=== PATIENT | male | born 1955 | race Caucasian/White ===

== ENCOUNTER 2018-11-14 10:44 | Inpatient (IN) | payer OTHER ==
[2018-11-14] MEDS: THIAMINE 100 MG TAB PO (11:02)
[2018-11-14] MEDS: LORAZEPAM 2 MG INJ IV ×3 (11:02→14:03)
[2018-11-14] MEDS: SOD CHLORIDE 0.9% 1,000 ML IV ×2 (11:02→19:34)
[2018-11-14 11:16] LABS: ADD MAN DIFF? NO
[2018-11-14 11:23] LABS: ABNORMAL IP MESSAGE 1; BASOPHILS % 0.3 % (0.0-2.0); EOSINOPHILS # 0.1 10^3/ul (0.0-0.5); EOSINOPHILS % 0.9 % (0.0-7.0); HEMATOCRIT 47.5 % (42.0-52.0); HEMOGLOBIN 16.6 g/dl (14.0-18.0); LYMPHOCYTES # 1.1 10^3/ul (0.8-2.9); LYMPHOCYTES % 11.3 % (15.0-51.0); MEAN CORPUSCULAR HEMOGLOBIN 35.7 pg (29.0-33.0); MEAN CORPUSCULAR HGB CONC 34.9 g/dl (32.0-37.0); MEAN CORPUSCULAR VOLUME 102.2 fl (82.0-101.0); MONOCYTE # 0.8 10^3/ul (0.3-0.9); MONOCYTES % 8.8 % (0.0-11.0); NEUTROPHIL # 7.3 10^3/ul (1.6-7.5); NEUTROPHILS % 78.3 % (39.0-77.0); PLATELET COUNT 42 10^3/UL (140-415); POSITIVE DIFF @See below; RED BLOOD COUNT 4.65 10^6/ul (4.70-6.10); RED CELL DISTRIBUTION WIDTH 13.2 % (11.5-14.5)
[2018-11-14 11:23] LABS: WHITE BLOOD COUNT 9.4 10^3/ul (4.8-10.8)
[2018-11-14 11:25] LABS: PATH REVIEW? YES
[2018-11-14 11:40] LABS: ALANINE AMINOTRANSFERASE 107 IU/L (13-69); ALBUMIN 4.6 g/dl (3.3-4.9); ALBUMIN/GLOBULIN RATIO 1.27; ALKALINE PHOSPHATASE 84 IU/L (42-121); ANION GAP 18 (5-13); ASPARTATE AMINO TRANSFERASE 236 IU/L (15-46); BILIRUBIN,INDIRECT 1.6 mg/dl (0-1.1); BILIRUBIN,TOTAL 1.6 mg/dl (0.2-1.3); BLOOD UREA NITROGEN 33 mg/dl (7-20); CALCIUM 10.3 mg/dl (8.4-10.2); CARBON DIOXIDE 24 mmol/L (21-31); CHLORIDE 98 mmol/L (97-110); Estimated GFR 38 mL/min (>60); GLUCOSE 116 mg/dl (70-220); POTASSIUM 4.2 mmol/L (3.5-5.1); SODIUM 140 mmol/L (135-144); TOTAL PROTEIN 8.2 g/dl (6.1-8.1)
[2018-11-14 11:52] LABS: INR 0.95; PROTIME 12.8 Sec (11.9-14.9)
[2018-11-14 11:53] LABS: PARTIAL THROMBOPLASTIN TIME 23.1 Sec (23.0-35.0)
[2018-11-14] MEDS: MULTIVITAMINS 10 ML, THIAMINE 100 MG, FOLIC ACID 1 MG, MAGNESIUM SULFATE 2 GM in SOD CH... IV ×2 (12:09→16:31)
[2018-11-14 12:28] LABS: ETHANOL < 10.0 mg/dl (0-0)
[2018-11-14 12:42] LABS: ANISOCYTOSIS 1+ (0-0); BAND NEUTROPHILS #M 0.2 10^3/ul (0.0-0.6); BAND NEUTROPHILS % (M) 3 % (0-4); EOSINOPHILS % (M) 1 % (0-7); HYPOCHROMASIA 1+ (0-0); LYMPHOCYTES #M 1.7 10^3/ul (0.8-2.9); LYMPHOCYTES % (M) 19 % (15-51); MONOCYTE #M 0.5 10^3/ul (0.3-0.9); MONOCYTES % (M) 6 % (0-11); PLATELET ESTIMATE SIG DECREASED; PLATELET MORPHOLOGY COMMENT @See below; POIKILOCYTOSIS 1+ (0-0); POLYCHROMASIA 1+ (0-0); REACTIVE LYMPHOCYTES% (M) 1 % (0-0); SEG NEUT #M 6.6 10^3/ul (1.6-7.5); SEGMENTED NEUTROPHILS (M) % 70 % (39-77); SMUDGE%M 11 % (0-0); TARGET CELLS 1+ (0-0)
[2018-11-14] MEDS ORDERED: ACETAMINOPHEN 325 MG TAB PO (14:00)
[2018-11-14] MEDS ORDERED: ONDANSETRON 4 MG INJ IV ×2 (14:00→15:00)
[2018-11-14] MEDS: HALOPERIDOL 5 MG INJ IM (14:33)
[2018-11-14] MEDS: DIAZEPAM 5 MG/ML SYG IV ×7 (14:54→19:19)
[2018-11-14] MEDS ORDERED: ALBUTEROL/IPRATROPIUM (NEB) 3 ML AMP HHN (15:00)
[2018-11-14] MEDS ORDERED: NACL 0.9% 3 ML SYG IV (15:00)
[2018-11-14 15:57] LABS: FOLATE 13.2 ng/ml (2.8-20.0)
[2018-11-14] MEDS ORDERED: CHLORDIAZEPOXIDE 25 MG CAP PO (17:00)
[2018-11-14] MEDS: CHLORDIAZEPOXIDE 25 MG CAP PO ×2 (17:00→21:00)
[2018-11-15] MEDS: DIAZEPAM 5 MG/ML SYG IV ×2 (00:12→14:35)
[2018-11-15] MEDS: CHLORDIAZEPOXIDE 25 MG CAP PO ×4 (00:12→20:12)
[2018-11-15] MEDS ORDERED: DIAZEPAM 5 MG/ML SYG IV ×2 (00:30→17:30)
[2018-11-15] MEDS: SOD CHLORIDE 0.9% 1,000 ML IV ×2 (06:00→15:32)
[2018-11-15] MEDS: PANTOPRAZOLE (EC) 40 MG TAB PO (06:27)
[2018-11-15] MEDS: LORAZEPAM 2 MG INJ IV ×6 (07:44→21:30)
[2018-11-15 08:46] LABS: ADD MAN DIFF? NO
[2018-11-15 08:56] LABS: ABNORMAL IP MESSAGE 1; BASOPHILS % 0.3 % (0.0-2.0); EOSINOPHILS # 0.2 10^3/ul (0.0-0.5); HEMATOCRIT 41.5 % (42.0-52.0); HEMOGLOBIN 14.2 g/dl (14.0-18.0); LYMPHOCYTES % 12.7 % (15.0-51.0); MEAN CORPUSCULAR HEMOGLOBIN 35.5 pg (29.0-33.0); MEAN CORPUSCULAR HGB CONC 34.2 g/dl (32.0-37.0); MEAN CORPUSCULAR VOLUME 103.8 fl (82.0-101.0); MONOCYTE # 0.7 10^3/ul (0.3-0.9); MONOCYTES % 9.1 % (0.0-11.0); NEUTROPHILS % 75.4 % (39.0-77.0); PLATELET COUNT 33 10^3/UL (140-415); POSITIVE DIFF @See below; RED CELL DISTRIBUTION WIDTH 13.2 % (11.5-14.5)
[2018-11-15 08:56] LABS: WHITE BLOOD COUNT 7.9 10^3/ul (4.8-10.8)
[2018-11-15 09:16] LABS: ALANINE AMINOTRANSFERASE 93 IU/L (13-69); ALBUMIN 3.6 g/dl (3.3-4.9); ALBUMIN/GLOBULIN RATIO 1.28; ALKALINE PHOSPHATASE 60 IU/L (42-121); ANION GAP 15 (5-13); ASPARTATE AMINO TRANSFERASE 268 IU/L (15-46); BILIRUBIN,INDIRECT 1.4 mg/dl (0-1.1); BILIRUBIN,TOTAL 1.4 mg/dl (0.2-1.3); BLOOD UREA NITROGEN 20 mg/dl (7-20); CALCIUM 8.8 mg/dl (8.4-10.2); CARBON DIOXIDE 21 mmol/L (21-31); CHLORIDE 103 mmol/L (97-110); CREATININE 0.95 mg/dl (0.61-1.24); Estimated GFR > 60 mL/min (>60); GLUCOSE 66 mg/dl (70-220); MAGNESIUM 1.6 mg/dl (1.7-2.5); PHOSPHORUS 1.4 mg/dl (2.5-4.9); POTASSIUM 3.3 mmol/L (3.5-5.1); SODIUM 139 mmol/L (135-144); TOTAL PROTEIN 6.4 g/dl (6.1-8.1)
[2018-11-15 09:20] LABS: HEMOGLOBIN A1C 4.8 % (0-5.9)
[2018-11-15 09:39] LABS: THYROID STIMULATING HORMONE 0.973 MIU/L (0.465-4.680)
[2018-11-15] MEDS ORDERED: THIAMINE 200 MG INJ IV (10:00)
[2018-11-15] MEDS: THIAMINE 500 MG in SOD CHLORIDE 0.9% 250 ML IV ×2 (11:00→20:11)
[2018-11-15] MEDS: MAGNESIUM SULFATE 3 GM in DEXTROSE 5% 100 ML IVPB (14:37)
[2018-11-15] MEDS: POTASSIUM PHOSPHATE 30 MM in SOD CHLORIDE 0.9% 250 ML IVPB (17:12)
[2018-11-16] MEDS: LORAZEPAM 2 MG INJ IV ×3 (01:09→03:35)
[2018-11-16] MEDS: THIAMINE 500 MG in SOD CHLORIDE 0.9% 250 ML IV ×3 (03:35→18:25)
[2018-11-16] MEDS: SOD CHLORIDE 0.9% 1,000 ML IV ×2 (03:42→18:25)
[2018-11-16] MEDS: ACETAMINOPHEN 325 MG TAB PO ×2 (05:58→20:08)
[2018-11-16] MEDS: PANTOPRAZOLE (EC) 40 MG TAB PO (05:59)
[2018-11-16] MEDS: CHLORDIAZEPOXIDE 25 MG CAP PO ×2 (08:54→20:08)
[2018-11-16 10:33] LABS: ADD MAN DIFF? NO
[2018-11-16 10:35] LABS: WHITE BLOOD COUNT 9.3 10^3/ul (4.8-10.8)
[2018-11-16 10:35] LABS: ABNORMAL IP MESSAGE 1; BASOPHILS % 0.2 % (0.0-2.0); EOSINOPHILS # 0.1 10^3/ul (0.0-0.5); EOSINOPHILS % 1.4 % (0.0-7.0); HEMOGLOBIN 14.2 g/dl (14.0-18.0); LYMPHOCYTES # 1.1 10^3/ul (0.8-2.9); LYMPHOCYTES % 12.2 % (15.0-51.0); MEAN CORPUSCULAR HEMOGLOBIN 35.9 pg (29.0-33.0); MEAN CORPUSCULAR HGB CONC 34.6 g/dl (32.0-37.0); MEAN CORPUSCULAR VOLUME 103.5 fl (82.0-101.0); MONOCYTE # 0.9 10^3/ul (0.3-0.9); MONOCYTES % 9.5 % (0.0-11.0); NEUTROPHIL # 7.1 10^3/ul (1.6-7.5); NEUTROPHILS % 76.2 % (39.0-77.0); PLATELET COUNT 36 10^3/UL (140-415); POSITIVE DIFF @See below; RED BLOOD COUNT 3.96 10^6/ul (4.70-6.10)
[2018-11-16 11:01] LABS: ANION GAP 10 (5-13); BLOOD UREA NITROGEN 12 mg/dl (7-20); CALCIUM 8.4 mg/dl (8.4-10.2); CARBON DIOXIDE 24 mmol/L (21-31); CHLORIDE 104 mmol/L (97-110); CREATININE 0.71 mg/dl (0.61-1.24); Estimated GFR > 60 mL/min (>60); GLUCOSE 103 mg/dl (70-220); MAGNESIUM 1.4 mg/dl (1.7-2.5); PHOSPHORUS 3.4 mg/dl (2.5-4.9); POTASSIUM 3.6 mmol/L (3.5-5.1); SODIUM 138 mmol/L (135-144)
[2018-11-17] MEDS: THIAMINE 500 MG in SOD CHLORIDE 0.9% 250 ML IV (02:05)
[2018-11-17] MEDS: HYDROCODONE/APAP (5/325) TAB PO ×4 (03:52→21:11)
[2018-11-17] MEDS: SOD CHLORIDE 0.9% 1,000 ML IV ×3 (04:42→21:37)
[2018-11-17] MEDS: PANTOPRAZOLE (EC) 40 MG TAB PO (05:30)
[2018-11-17 06:09] LABS: ADD MAN DIFF? NO
[2018-11-17 06:22] LABS: WHITE BLOOD COUNT 7.4 10^3/ul (4.8-10.8)
[2018-11-17 06:22] LABS: ABNORMAL IP MESSAGE 1; BASOPHILS % 0.1 % (0.0-2.0); EOSINOPHILS # 0.2 10^3/ul (0.0-0.5); EOSINOPHILS % 3.2 % (0.0-7.0); HEMATOCRIT 37.7 % (42.0-52.0); HEMOGLOBIN 13.1 g/dl (14.0-18.0); LYMPHOCYTES # 1.1 10^3/ul (0.8-2.9); LYMPHOCYTES % 14.6 % (15.0-51.0); MEAN CORPUSCULAR HEMOGLOBIN 35.7 pg (29.0-33.0); MEAN CORPUSCULAR HGB CONC 34.7 g/dl (32.0-37.0); MEAN CORPUSCULAR VOLUME 102.7 fl (82.0-101.0); MONOCYTE # 0.9 10^3/ul (0.3-0.9); MONOCYTES % 12.7 % (0.0-11.0); NEUTROPHIL # 5.1 10^3/ul (1.6-7.5); POSITIVE DIFF @See below; RED BLOOD COUNT 3.67 10^6/ul (4.70-6.10); RED CELL DISTRIBUTION WIDTH 12.8 % (11.5-14.5)
[2018-11-17 06:34] LABS: PLATELET COUNT 46 10^3/UL (140-415)
[2018-11-17 06:47] LABS: ALANINE AMINOTRANSFERASE 85 IU/L (13-69); ALBUMIN/GLOBULIN RATIO 1.03; ALKALINE PHOSPHATASE 54 IU/L (42-121); ANION GAP 5 (5-13); ASPARTATE AMINO TRANSFERASE 141 IU/L (15-46); BILIRUBIN,INDIRECT 1.1 mg/dl (0-1.1); BILIRUBIN,TOTAL 1.1 mg/dl (0.2-1.3); BLOOD UREA NITROGEN 12 mg/dl (7-20); CALCIUM 8.3 mg/dl (8.4-10.2); CARBON DIOXIDE 24 mmol/L (21-31); CHLORIDE 107 mmol/L (97-110); CREATININE 0.75 mg/dl (0.61-1.24); Estimated GFR > 60 mL/min (>60); GLUCOSE 111 mg/dl (70-220); POTASSIUM 3.2 mmol/L (3.5-5.1); SODIUM 136 mmol/L (135-144); TOTAL PROTEIN 5.9 g/dl (6.1-8.1)
[2018-11-17 07:03] LABS: MAGNESIUM 1.3 mg/dl (1.7-2.5)
[2018-11-17 07:03] LABS: PHOSPHORUS 2.8 mg/dl (2.5-4.9)
[2018-11-17] MEDS: CHLORDIAZEPOXIDE 25 MG CAP PO ×2 (08:35→21:12)
[2018-11-17] MEDS: ACETAMINOPHEN 325 MG TAB PO (09:11)
[2018-11-17] MEDS: POTASSIUM CHLORIDE (SR) 20 MEQ TAB PO (12:01)
[2018-11-17] MEDS: MAGNESIUM SULFATE 3 GM in DEXTROSE 5% 100 ML IVPB (12:26)
[2018-11-17] MEDS: LORAZEPAM 2 MG INJ IV (21:39)
[2018-11-18 05:23] LABS: ADD MAN DIFF? NO
[2018-11-18 05:31] LABS: ABNORMAL IP MESSAGE 1; BASOPHILS % 0.3 % (0.0-2.0); EOSINOPHILS # 0.2 10^3/ul (0.0-0.5); EOSINOPHILS % 2.9 % (0.0-7.0); HEMATOCRIT 38.6 % (42.0-52.0); HEMOGLOBIN 13.2 g/dl (14.0-18.0); LYMPHOCYTES # 1.1 10^3/ul (0.8-2.9); LYMPHOCYTES % 15.3 % (15.0-51.0); MEAN CORPUSCULAR HEMOGLOBIN 35.4 pg (29.0-33.0); MEAN CORPUSCULAR HGB CONC 34.2 g/dl (32.0-37.0); MEAN CORPUSCULAR VOLUME 103.5 fl (82.0-101.0); MEAN PLATELET VOLUME 13.3 fl (7.4-10.4); MONOCYTE # 1.1 10^3/ul (0.3-0.9); MONOCYTES % 15.5 % (0.0-11.0); NEUTROPHIL # 4.6 10^3/ul (1.6-7.5); NEUTROPHILS % 65.7 % (39.0-77.0); PLATELET COUNT 84 10^3/UL (140-415); POSITIVE DIFF @See below; RED BLOOD COUNT 3.73 10^6/ul (4.70-6.10); RED CELL DISTRIBUTION WIDTH 12.8 % (11.5-14.5)
[2018-11-18 06:02] LABS: ALANINE AMINOTRANSFERASE 73 IU/L (13-69); ALBUMIN 3.2 g/dl (3.3-4.9); ALKALINE PHOSPHATASE 57 IU/L (42-121); ANION GAP 7 (5-13); ASPARTATE AMINO TRANSFERASE 112 IU/L (15-46); BILIRUBIN,INDIRECT 0.8 mg/dl (0-1.1); BILIRUBIN,TOTAL 0.8 mg/dl (0.2-1.3); BLOOD UREA NITROGEN 10 mg/dl (7-20); CALCIUM 8.7 mg/dl (8.4-10.2); CARBON DIOXIDE 27 mmol/L (21-31); CHLORIDE 105 mmol/L (97-110); CREATININE 0.75 mg/dl (0.61-1.24); Estimated GFR > 60 mL/min (>60); GLUCOSE 92 mg/dl (70-220); SODIUM 139 mmol/L (135-144); TOTAL PROTEIN 6.1 g/dl (6.1-8.1)
[2018-11-18 06:06] LABS: MAGNESIUM 1.7 mg/dl (1.7-2.5)
[2018-11-18 06:13] LABS: PHOSPHORUS 2.9 mg/dl (2.5-4.9)
[2018-11-18] MEDS: PANTOPRAZOLE (EC) 40 MG TAB PO (06:41)
[2018-11-18] MEDS: LORAZEPAM 2 MG INJ IV ×4 (10:57→20:34)
[2018-11-18] MEDS: SOD CHLORIDE 0.9% 1,000 ML IV (10:57)
[2018-11-18] MEDS: HYDROCODONE/APAP (5/325) TAB PO (11:40)
[2018-11-18] MEDS: CHLORDIAZEPOXIDE 25 MG CAP PO ×2 (13:26→20:34)
[2018-11-19] MEDS: LORAZEPAM 2 MG INJ IV ×3 (00:25→10:13)
[2018-11-19] MEDS: SOD CHLORIDE 0.9% 1,000 ML IV ×2 (04:03→20:07)
[2018-11-19 05:18] LABS: ADD MAN DIFF? NO
[2018-11-19 05:32] LABS: WHITE BLOOD COUNT 7.9 10^3/ul (4.8-10.8)
[2018-11-19 05:32] LABS: ABNORMAL IP MESSAGE 1; BASOPHILS % 0.4 % (0.0-2.0); EOSINOPHILS # 0.1 10^3/ul (0.0-0.5); EOSINOPHILS % 0.8 % (0.0-7.0); HEMATOCRIT 39.1 % (42.0-52.0); HEMOGLOBIN 13.6 g/dl (14.0-18.0); LYMPHOCYTES # 0.9 10^3/ul (0.8-2.9); LYMPHOCYTES % 11.8 % (15.0-51.0); MEAN CORPUSCULAR HEMOGLOBIN 35.8 pg (29.0-33.0); MEAN CORPUSCULAR HGB CONC 34.8 g/dl (32.0-37.0); MEAN CORPUSCULAR VOLUME 102.9 fl (82.0-101.0); MEAN PLATELET VOLUME 12.9 fl (7.4-10.4); MONOCYTE # 1.6 10^3/ul (0.3-0.9); NEUTROPHIL # 5.3 10^3/ul (1.6-7.5); NEUTROPHILS % 66.5 % (39.0-77.0); PLATELET COUNT 142 10^3/UL (140-415); POSITIVE DIFF @See below; RED CELL DISTRIBUTION WIDTH 12.6 % (11.5-14.5)
[2018-11-19 05:51] LABS: MAGNESIUM 1.2 mg/dl (1.7-2.5)
[2018-11-19 05:57] LABS: PHOSPHORUS 3.1 mg/dl (2.5-4.9)
[2018-11-19] MEDS: PANTOPRAZOLE (EC) 40 MG TAB PO (06:10)
[2018-11-19 06:29] LABS: ANION GAP 9 (5-13); BLOOD UREA NITROGEN 9 mg/dl (7-20); CARBON DIOXIDE 26 mmol/L (21-31); CHLORIDE 103 mmol/L (97-110); CREATININE 0.74 mg/dl (0.61-1.24); Estimated GFR > 60 mL/min (>60); GLUCOSE 102 mg/dl (70-220); POTASSIUM 3.5 mmol/L (3.5-5.1); SODIUM 138 mmol/L (135-144)
[2018-11-19] MEDS: CHLORDIAZEPOXIDE 25 MG CAP PO ×3 (08:11→21:00)
[2018-11-19] MEDS: MAGNESIUM SULFATE 3 GM in DEXTROSE 5% 100 ML IVPB (11:07)
[2018-11-20] MEDS: HYDROCODONE/APAP (5/325) TAB PO (04:17)
[2018-11-20] MEDS: PANTOPRAZOLE (EC) 40 MG TAB PO (06:11)
[2018-11-20] MEDS: CHLORDIAZEPOXIDE 25 MG CAP PO ×3 (09:04→20:38)
[2018-11-20] MEDS: SOD CHLORIDE 0.9% 1,000 ML IV ×2 (09:04→20:37)
[2018-11-20 11:30] LABS: ADD MAN DIFF? NO
[2018-11-20 11:32] LABS: ABNORMAL IP MESSAGE 1; BASOPHILS % 0.2 % (0.0-2.0); EOSINOPHILS # 0.1 10^3/ul (0.0-0.5); EOSINOPHILS % 0.6 % (0.0-7.0); HEMATOCRIT 37.9 % (42.0-52.0); LYMPHOCYTES # 0.9 10^3/ul (0.8-2.9); LYMPHOCYTES % 11.6 % (15.0-51.0); MEAN CORPUSCULAR HEMOGLOBIN 35.5 pg (29.0-33.0); MEAN CORPUSCULAR HGB CONC 34.3 g/dl (32.0-37.0); MEAN CORPUSCULAR VOLUME 103.6 fl (82.0-101.0); MONOCYTE # 2.2 10^3/ul (0.3-0.9); MONOCYTES % 26.9 % (0.0-11.0); NEUTROPHIL # 4.9 10^3/ul (1.6-7.5); NEUTROPHILS % 60.3 % (39.0-77.0); PLATELET COUNT 210 10^3/UL (140-415); POSITIVE DIFF @See below; RED BLOOD COUNT 3.66 10^6/ul (4.70-6.10); RED CELL DISTRIBUTION WIDTH 12.8 % (11.5-14.5)
[2018-11-20 11:57] LABS: MAGNESIUM 1.5 mg/dl (1.7-2.5)
[2018-11-20 11:57] LABS: ANION GAP 5 (5-13); BLOOD UREA NITROGEN 14 mg/dl (7-20); CARBON DIOXIDE 23 mmol/L (21-31); CHLORIDE 107 mmol/L (97-110); CREATININE 0.76 mg/dl (0.61-1.24); Estimated GFR > 60 mL/min (>60); GLUCOSE 120 mg/dl (70-220); POTASSIUM 3.8 mmol/L (3.5-5.1); SODIUM 135 mmol/L (135-144)
[2018-11-21] MEDS: HYDROCODONE/APAP (5/325) TAB PO (02:32)
[2018-11-21] MEDS: PANTOPRAZOLE (EC) 40 MG TAB PO (06:31)
[2018-11-21] MEDS: CHLORDIAZEPOXIDE 25 MG CAP PO ×3 (09:04→21:15)
[2018-11-21] MEDS: SOD CHLORIDE 0.9% 1,000 ML IV ×3 (09:50→21:32)
[2018-11-21] MEDS: LORAZEPAM 2 MG INJ IV (21:20)
[2018-11-22] MEDS: LORAZEPAM 2 MG INJ IV (04:09)
[2018-11-22] MEDS: PANTOPRAZOLE (EC) 40 MG TAB PO (05:45)
[2018-11-22] MEDS: CHLORDIAZEPOXIDE 25 MG CAP PO ×3 (09:00→20:45)
[2018-11-22] MEDS: SOD CHLORIDE 0.9% 1,000 ML IV ×3 (09:50→22:32)
[2018-11-22] MEDS: HYDROCODONE/APAP (5/325) TAB PO (20:45)
[2018-11-23 05:20] LABS: ADD MAN DIFF? NO
[2018-11-23 05:31] LABS: BASOPHIL # 0.1 10^3/ul (0.0-0.1); BASOPHILS % 0.7 % (0.0-2.0); EOSINOPHILS # 0.1 10^3/ul (0.0-0.5); EOSINOPHILS % 1.3 % (0.0-7.0); HEMATOCRIT 37.3 % (42.0-52.0); HEMOGLOBIN 12.5 g/dl (14.0-18.0); LYMPHOCYTES # 1.2 10^3/ul (0.8-2.9); LYMPHOCYTES % 15.8 % (15.0-51.0); MEAN CORPUSCULAR HEMOGLOBIN 34.7 pg (29.0-33.0); MEAN CORPUSCULAR HGB CONC 33.5 g/dl (32.0-37.0); MEAN CORPUSCULAR VOLUME 103.6 fl (82.0-101.0); MEAN PLATELET VOLUME 11.7 fl (7.4-10.4); MONOCYTE # 1.4 10^3/ul (0.3-0.9); MONOCYTES % 17.8 % (0.0-11.0); NEUTROPHIL # 4.9 10^3/ul (1.6-7.5); PLATELET COUNT 422 10^3/UL (140-415); RED CELL DISTRIBUTION WIDTH 12.2 % (11.5-14.5)
[2018-11-23 05:31] LABS: WHITE BLOOD COUNT 7.7 10^3/ul (4.8-10.8)
[2018-11-23] MEDS: PANTOPRAZOLE (EC) 40 MG TAB PO (05:45)
[2018-11-23 05:50] LABS: MAGNESIUM 1.3 mg/dl (1.7-2.5)
[2018-11-23 05:50] LABS: PHOSPHORUS 3.1 mg/dl (2.5-4.9)
[2018-11-23 05:56] LABS: ANION GAP 9 (5-13); BLOOD UREA NITROGEN 14 mg/dl (7-20); CARBON DIOXIDE 26 mmol/L (21-31); CHLORIDE 104 mmol/L (97-110); CREATININE 0.74 mg/dl (0.61-1.24); Estimated GFR > 60 mL/min (>60); GLUCOSE 94 mg/dl (70-220); POTASSIUM 3.7 mmol/L (3.5-5.1); SODIUM 139 mmol/L (135-144)
[2018-11-23] MEDS: CHLORDIAZEPOXIDE 25 MG CAP PO ×3 (09:06→20:36)
[2018-11-23] MEDS: SOD CHLORIDE 0.9% 1,000 ML IV ×2 (10:34→23:32)
[2018-11-23] MEDS: MAGNESIUM SULFATE 3 GM in DEXTROSE 5% 100 ML IVPB (10:34)
[2018-11-23 15:43] LABS: ADD UMIC YES; UR ASCORBIC ACID NEGATIVE (NEGATIVE); UR BACTERIA FEW /HPF (NONE SEEN); UR BILIRUBIN (Dip) NEGATIVE (NEGATIVE); UR BLOOD (Dip) 1+ mg/dL (NEGATIVE); UR CLARITY SLIGHTLY CLOUDY (CLEAR); UR COLOR YELLOW (YELLOW); UR GLUCOSE (Dip) NEGATIVE (NEGATIVE); UR KETONES (Dip) NEGATIVE (NEGATIVE); UR LEUKOCYTE ESTERASE (Dip) NEGATIVE Leu/ul (NEGATIVE); UR NITRITE (Dip) NEGATIVE (NEGATIVE); UR RBC 0 /HPF (0-5); UR SPECIFIC GRAVITY (Dip) 1.004 (1.003-1.030); UR TOTAL PROTEIN (Dip) NEGATIVE (NEGATIVE); UR UROBILINOGEN (Dip) 1+ mg/dL (NEGATIVE); UR WBC 1 /HPF (0-5)
[2018-11-24] MEDS: HYDROCODONE/APAP (5/325) TAB PO ×2 (01:14→20:41)
[2018-11-24] MEDS: SOD CHLORIDE 0.9% 1,000 ML IV ×3 (02:44→15:56)
[2018-11-24 04:44] LABS: ADD MAN DIFF? NO
[2018-11-24 04:45] LABS: WHITE BLOOD COUNT 6.7 10^3/ul (4.8-10.8)
[2018-11-24 04:45] LABS: BASOPHIL # 0.1 10^3/ul (0.0-0.1); BASOPHILS % 0.8 % (0.0-2.0); EOSINOPHILS # 0.1 10^3/ul (0.0-0.5); EOSINOPHILS % 1.4 % (0.0-7.0); HEMATOCRIT 33.5 % (42.0-52.0); HEMOGLOBIN 11.4 g/dl (14.0-18.0); LYMPHOCYTES # 1.1 10^3/ul (0.8-2.9); LYMPHOCYTES % 15.9 % (15.0-51.0); MEAN CORPUSCULAR HEMOGLOBIN 35.6 pg (29.0-33.0); MEAN CORPUSCULAR VOLUME 104.7 fl (82.0-101.0); MEAN PLATELET VOLUME 11.1 fl (7.4-10.4); MONOCYTE # 0.9 10^3/ul (0.3-0.9); MONOCYTES % 13.8 % (0.0-11.0); NEUTROPHIL # 4.5 10^3/ul (1.6-7.5); NEUTROPHILS % 67.5 % (39.0-77.0); PLATELET COUNT 477 10^3/UL (140-415); RED CELL DISTRIBUTION WIDTH 12.3 % (11.5-14.5)
[2018-11-24 05:05] LABS: PHOSPHORUS 3.2 mg/dl (2.5-4.9)
[2018-11-24 05:05] LABS: ANION GAP 8 (5-13); BLOOD UREA NITROGEN 13 mg/dl (7-20); CALCIUM 8.8 mg/dl (8.4-10.2); CARBON DIOXIDE 25 mmol/L (21-31); CHLORIDE 106 mmol/L (97-110); CREATININE 0.69 mg/dl (0.61-1.24); Estimated GFR > 60 mL/min (>60); GLUCOSE 96 mg/dl (70-220); MAGNESIUM 1.7 mg/dl (1.7-2.5); POTASSIUM 3.4 mmol/L (3.5-5.1); SODIUM 139 mmol/L (135-144)
[2018-11-24] MEDS: PANTOPRAZOLE (EC) 40 MG TAB PO (05:31)
[2018-11-24] MEDS: CHLORDIAZEPOXIDE 25 MG CAP PO (08:22)
[2018-11-24] MEDS: POTASSIUM CHLORIDE 20 MEQ POWDER FOR ORAL SOLN PO (15:57)
[2018-11-24] MEDS: MAGNESIUM SULFATE 2 GM/50 ML 50 ML IVPB (15:58)
[2018-11-25] MEDS: traZODone 50 MG TAB PO (01:50)
[2018-11-25] MEDS: PANTOPRAZOLE (EC) 40 MG TAB PO (06:05)
[2018-11-25] MEDS: SOD CHLORIDE 0.9% 1,000 ML IV ×3 (06:06→20:24)
[2018-11-25 14:38] LABS: ADD MAN DIFF? NO
[2018-11-25 14:41] LABS: BASOPHIL # 0.1 10^3/ul (0.0-0.1); BASOPHILS % 0.6 % (0.0-2.0); EOSINOPHILS # 0.1 10^3/ul (0.0-0.5); EOSINOPHILS % 1.4 % (0.0-7.0); HEMOGLOBIN 11.5 g/dl (14.0-18.0); LYMPHOCYTES % 12.9 % (15.0-51.0); MEAN CORPUSCULAR HEMOGLOBIN 35.5 pg (29.0-33.0); MEAN CORPUSCULAR HGB CONC 33.8 g/dl (32.0-37.0); MEAN CORPUSCULAR VOLUME 104.9 fl (82.0-101.0); MEAN PLATELET VOLUME 11.6 fl (7.4-10.4); MONOCYTE # 0.8 10^3/ul (0.3-0.9); MONOCYTES % 10.6 % (0.0-11.0); NEUTROPHIL # 5.8 10^3/ul (1.6-7.5); PLATELET COUNT 513 10^3/UL (140-415); RED BLOOD COUNT 3.24 10^6/ul (4.70-6.10); RED CELL DISTRIBUTION WIDTH 12.3 % (11.5-14.5)
[2018-11-25 14:41] LABS: WHITE BLOOD COUNT 7.8 10^3/ul (4.8-10.8)
[2018-11-25 14:58] LABS: ANION GAP 9 (5-13); BLOOD UREA NITROGEN 10 mg/dl (7-20); CARBON DIOXIDE 22 mmol/L (21-31); CHLORIDE 108 mmol/L (97-110); CREATININE 0.68 mg/dl (0.61-1.24); Estimated GFR > 60 mL/min (>60); GLUCOSE 88 mg/dl (70-220); POTASSIUM 3.6 mmol/L (3.5-5.1); SODIUM 139 mmol/L (135-144)
[2018-11-26] MEDS: traZODone 50 MG TAB PO (02:43)
[2018-11-26 05:40] LABS: ADD MAN DIFF? NO
[2018-11-26] MEDS: PANTOPRAZOLE (EC) 40 MG TAB PO (05:43)
[2018-11-26 06:02] LABS: BASOPHIL # 0.1 10^3/ul (0.0-0.1); BASOPHILS % 0.8 % (0.0-2.0); EOSINOPHILS # 0.2 10^3/ul (0.0-0.5); EOSINOPHILS % 2.1 % (0.0-7.0); HEMATOCRIT 35.2 % (42.0-52.0); HEMOGLOBIN 11.9 g/dl (14.0-18.0); LYMPHOCYTES # 1.4 10^3/ul (0.8-2.9); LYMPHOCYTES % 16.2 % (15.0-51.0); MEAN CORPUSCULAR HEMOGLOBIN 35.3 pg (29.0-33.0); MEAN CORPUSCULAR HGB CONC 33.8 g/dl (32.0-37.0); MEAN CORPUSCULAR VOLUME 104.5 fl (82.0-101.0); MEAN PLATELET VOLUME 11.1 fl (7.4-10.4); MONOCYTES % 11.8 % (0.0-11.0); NEUTROPHIL # 5.9 10^3/ul (1.6-7.5); NEUTROPHILS % 68.6 % (39.0-77.0); PLATELET COUNT 626 10^3/UL (140-415); RED BLOOD COUNT 3.37 10^6/ul (4.70-6.10); RED CELL DISTRIBUTION WIDTH 12.2 % (11.5-14.5)
[2018-11-26 06:02] LABS: WHITE BLOOD COUNT 8.6 10^3/ul (4.8-10.8)
[2018-11-26 06:15] LABS: ANION GAP 10 (5-13); BLOOD UREA NITROGEN 8 mg/dl (7-20); CALCIUM 9.4 mg/dl (8.4-10.2); CARBON DIOXIDE 25 mmol/L (21-31); CHLORIDE 105 mmol/L (97-110); CREATININE 0.71 mg/dl (0.61-1.24); Estimated GFR > 60 mL/min (>60); GLUCOSE 87 mg/dl (70-220); MAGNESIUM 1.2 mg/dl (1.7-2.5); PHOSPHORUS 3.3 mg/dl (2.5-4.9); POTASSIUM 3.4 mmol/L (3.5-5.1); SODIUM 140 mmol/L (135-144)
[2018-11-26] MEDS: POTASSIUM CHLORIDE 20 MEQ POWDER FOR ORAL SOLN PO (09:27)
[2018-11-26] MEDS: MAGNESIUM SULFATE 3 GM in DEXTROSE 5% 100 ML IVPB (10:20)
[2018-11-26] MEDS: SOD CHLORIDE 0.9% 1,000 ML IV (13:37)
[2018-11-26] MEDS: HYDROCODONE/APAP (5/325) TAB PO (21:29)
[2018-11-27] MEDS: SOD CHLORIDE 0.9% 1,000 ML IV ×3 (02:30→15:02)
[2018-11-27] MEDS: PANTOPRAZOLE (EC) 40 MG TAB PO (05:56)
[2018-11-27 06:02] LABS: ADD MAN DIFF? NO
[2018-11-27 06:11] LABS: BASOPHIL # 0.1 10^3/ul (0.0-0.1); BASOPHILS % 1.2 % (0.0-2.0); EOSINOPHILS # 0.2 10^3/ul (0.0-0.5); EOSINOPHILS % 2.8 % (0.0-7.0); HEMATOCRIT 36.3 % (42.0-52.0); HEMOGLOBIN 12.2 g/dl (14.0-18.0); LYMPHOCYTES # 1.5 10^3/ul (0.8-2.9); LYMPHOCYTES % 22.2 % (15.0-51.0); MEAN CORPUSCULAR HEMOGLOBIN 34.7 pg (29.0-33.0); MEAN CORPUSCULAR HGB CONC 33.6 g/dl (32.0-37.0); MEAN CORPUSCULAR VOLUME 103.1 fl (82.0-101.0); MEAN PLATELET VOLUME 10.8 fl (7.4-10.4); MONOCYTE # 0.7 10^3/ul (0.3-0.9); MONOCYTES % 10.9 % (0.0-11.0); NEUTROPHIL # 4.2 10^3/ul (1.6-7.5); NEUTROPHILS % 62.5 % (39.0-77.0); PLATELET COUNT 656 10^3/UL (140-415); RED BLOOD COUNT 3.52 10^6/ul (4.70-6.10); RED CELL DISTRIBUTION WIDTH 12.3 % (11.5-14.5)
[2018-11-27 06:11] LABS: WHITE BLOOD COUNT 6.7 10^3/ul (4.8-10.8)
[2018-11-27 06:28] LABS: ANION GAP 7 (5-13); BLOOD UREA NITROGEN 5 mg/dl (7-20); CALCIUM 9.5 mg/dl (8.4-10.2); CARBON DIOXIDE 25 mmol/L (21-31); CHLORIDE 109 mmol/L (97-110); CREATININE 0.71 mg/dl (0.61-1.24); Estimated GFR > 60 mL/min (>60); GLUCOSE 80 mg/dl (70-220); POTASSIUM 3.3 mmol/L (3.5-5.1); SODIUM 141 mmol/L (135-144)
[2018-11-27] MEDS: POTASSIUM CHLORIDE 20 MEQ POWDER FOR ORAL SOLN PO (10:20)
[2018-11-27] MEDS: MAGNESIUM SULFATE 2 GM/50 ML 50 ML IVPB (10:21)
[2018-11-27] MEDS: HYDROCODONE/APAP (5/325) TAB PO (22:38)
[2018-11-28] MEDS: SOD CHLORIDE 0.9% 1,000 ML IV ×2 (03:32→16:07)
[2018-11-28] MEDS: PANTOPRAZOLE (EC) 40 MG TAB PO (05:28)
[2018-11-28 05:36] LABS: ADD MAN DIFF? NO
[2018-11-28 05:47] LABS: BASOPHIL # 0.1 10^3/ul (0.0-0.1); BASOPHILS % 1.2 % (0.0-2.0); EOSINOPHILS # 0.2 10^3/ul (0.0-0.5); EOSINOPHILS % 2.6 % (0.0-7.0); HEMATOCRIT 36.7 % (42.0-52.0); HEMOGLOBIN 12.3 g/dl (14.0-18.0); LYMPHOCYTES # 1.8 10^3/ul (0.8-2.9); LYMPHOCYTES % 26.3 % (15.0-51.0); MEAN CORPUSCULAR HEMOGLOBIN 34.6 pg (29.0-33.0); MEAN CORPUSCULAR HGB CONC 33.5 g/dl (32.0-37.0); MEAN CORPUSCULAR VOLUME 103.1 fl (82.0-101.0); MEAN PLATELET VOLUME 10.8 fl (7.4-10.4); MONOCYTE # 0.7 10^3/ul (0.3-0.9); MONOCYTES % 10.2 % (0.0-11.0); NEUTROPHIL # 4.1 10^3/ul (1.6-7.5); NEUTROPHILS % 59.1 % (39.0-77.0); PLATELET COUNT 669 10^3/UL (140-415); RED BLOOD COUNT 3.56 10^6/ul (4.70-6.10); RED CELL DISTRIBUTION WIDTH 12.3 % (11.5-14.5)
[2018-11-28 05:47] LABS: WHITE BLOOD COUNT 6.9 10^3/ul (4.8-10.8)
[2018-11-28 06:05] LABS: ANION GAP 9 (5-13); BLOOD UREA NITROGEN 5 mg/dl (7-20); CALCIUM 9.3 mg/dl (8.4-10.2); CARBON DIOXIDE 26 mmol/L (21-31); CHLORIDE 106 mmol/L (97-110); CREATININE 0.73 mg/dl (0.61-1.24); Estimated GFR > 60 mL/min (>60); GLUCOSE 92 mg/dl (70-220); MAGNESIUM 1.4 mg/dl (1.7-2.5); PHOSPHORUS 3.5 mg/dl (2.5-4.9); POTASSIUM 3.5 mmol/L (3.5-5.1); SODIUM 141 mmol/L (135-144)
[2018-11-28] MEDS: HYDROCODONE/APAP (5/325) TAB PO ×2 (09:18→22:13)
[2018-11-29] MEDS: MAGNESIUM SULFATE 3 GM in DEXTROSE 5% 100 ML IVPB (00:31)
[2018-11-29] MEDS: ACETAMINOPHEN 325 MG TAB PO ×2 (00:39→14:07)
[2018-11-29 05:00] LABS: ADD MAN DIFF? NO
[2018-11-29 05:03] LABS: BASOPHIL # 0.1 10^3/ul (0.0-0.1); EOSINOPHILS # 0.2 10^3/ul (0.0-0.5); EOSINOPHILS % 2.1 % (0.0-7.0); HEMATOCRIT 38.6 % (42.0-52.0); HEMOGLOBIN 12.9 g/dl (14.0-18.0); LYMPHOCYTES # 2.2 10^3/ul (0.8-2.9); LYMPHOCYTES % 26.2 % (15.0-51.0); MEAN CORPUSCULAR HEMOGLOBIN 34.1 pg (29.0-33.0); MEAN CORPUSCULAR HGB CONC 33.4 g/dl (32.0-37.0); MEAN CORPUSCULAR VOLUME 102.1 fl (82.0-101.0); MEAN PLATELET VOLUME 10.6 fl (7.4-10.4); MONOCYTE # 0.8 10^3/ul (0.3-0.9); MONOCYTES % 9.4 % (0.0-11.0); NEUTROPHIL # 5.1 10^3/ul (1.6-7.5); NEUTROPHILS % 60.5 % (39.0-77.0); PLATELET COUNT 640 10^3/UL (140-415); RED BLOOD COUNT 3.78 10^6/ul (4.70-6.10); RED CELL DISTRIBUTION WIDTH 12.6 % (11.5-14.5)
[2018-11-29 05:03] LABS: WHITE BLOOD COUNT 8.4 10^3/ul (4.8-10.8)
[2018-11-29 05:42] LABS: ANION GAP 12 (5-13); BLOOD UREA NITROGEN 3 mg/dl (7-20); CALCIUM 9.7 mg/dl (8.4-10.2); CARBON DIOXIDE 25 mmol/L (21-31); CHLORIDE 105 mmol/L (97-110); Estimated GFR > 60 mL/min (>60); GLUCOSE 92 mg/dl (70-220); POTASSIUM 3.5 mmol/L (3.5-5.1); SODIUM 142 mmol/L (135-144)
[2018-11-29 05:44] LABS: MAGNESIUM 2.3 mg/dl (1.7-2.5)
[2018-11-29] MEDS: PANTOPRAZOLE (EC) 40 MG TAB PO (05:46)
[2018-11-29] MEDS: SOD CHLORIDE 0.9% 1,000 ML IV ×3 (08:08→22:14)
[2018-11-29] MEDS: HYDROCODONE/APAP (5/325) TAB PO (23:16)
[2018-11-30 05:09] LABS: ADD MAN DIFF? NO
[2018-11-30 05:18] LABS: WHITE BLOOD COUNT 7.9 10^3/ul (4.8-10.8)
[2018-11-30 05:18] LABS: BASOPHIL # 0.1 10^3/ul (0.0-0.1); BASOPHILS % 0.8 % (0.0-2.0); EOSINOPHILS # 0.2 10^3/ul (0.0-0.5); EOSINOPHILS % 2.7 % (0.0-7.0); HEMATOCRIT 37.4 % (42.0-52.0); HEMOGLOBIN 12.6 g/dl (14.0-18.0); LYMPHOCYTES # 2.2 10^3/ul (0.8-2.9); LYMPHOCYTES % 28.4 % (15.0-51.0); MEAN CORPUSCULAR HEMOGLOBIN 34.4 pg (29.0-33.0); MEAN CORPUSCULAR HGB CONC 33.7 g/dl (32.0-37.0); MEAN CORPUSCULAR VOLUME 102.2 fl (82.0-101.0); MEAN PLATELET VOLUME 10.8 fl (7.4-10.4); MONOCYTE # 0.8 10^3/ul (0.3-0.9); MONOCYTES % 10.2 % (0.0-11.0); NEUTROPHIL # 4.5 10^3/ul (1.6-7.5); NEUTROPHILS % 57.4 % (39.0-77.0); PLATELET COUNT 605 10^3/UL (140-415); RED BLOOD COUNT 3.66 10^6/ul (4.70-6.10); RED CELL DISTRIBUTION WIDTH 12.9 % (11.5-14.5)
[2018-11-30] MEDS: PANTOPRAZOLE (EC) 40 MG TAB PO (05:41)
[2018-11-30 06:00] LABS: ANION GAP 7 (5-13); BLOOD UREA NITROGEN 5 mg/dl (7-20); CALCIUM 9.7 mg/dl (8.4-10.2); CARBON DIOXIDE 25 mmol/L (21-31); CHLORIDE 110 mmol/L (97-110); CREATININE 0.81 mg/dl (0.61-1.24); Estimated GFR > 60 mL/min (>60); GLUCOSE 91 mg/dl (70-220); MAGNESIUM 1.4 mg/dl (1.7-2.5); PHOSPHORUS 3.8 mg/dl (2.5-4.9); POTASSIUM 3.5 mmol/L (3.5-5.1); SODIUM 142 mmol/L (135-144)
[2018-11-30] MEDS: ACETAMINOPHEN 325 MG TAB PO (07:42)
[2018-11-30] MEDS: NICOTINE (21 MG/24 HR) PATCH TRANSDERM (09:43)
[2018-11-30] MEDS: SOD CHLORIDE 0.9% 1,000 ML IV (13:05)
[2018-11-30] MEDS: HYDROCODONE/APAP (5/325) TAB PO (23:02)
[2018-12-01] MEDS: ACETAMINOPHEN 325 MG TAB PO ×2 (02:11→11:29)
[2018-12-01] MEDS: SOD CHLORIDE 0.9% 1,000 ML IV ×3 (04:18→19:42)
[2018-12-01] MEDS: HYDROCODONE/APAP (5/325) TAB PO ×2 (04:18→22:10)
[2018-12-01] MEDS: PANTOPRAZOLE (EC) 40 MG TAB PO (06:20)
[2018-12-01] MEDS: NICOTINE (21 MG/24 HR) PATCH TRANSDERM (08:29)
[2018-12-01] MEDS: ESCITALOPRAM 10 MG TAB PO (16:00)
[2018-12-02] MEDS: HYDROCODONE/APAP (5/325) TAB PO ×2 (03:51→22:43)
[2018-12-02] MEDS: PANTOPRAZOLE (EC) 40 MG TAB PO (06:22)
[2018-12-02] MEDS: ACETAMINOPHEN 325 MG TAB PO ×2 (07:44→16:25)
[2018-12-02] MEDS: SOD CHLORIDE 0.9% 1,000 ML IV ×2 (07:46→20:02)
[2018-12-02] MEDS: ESCITALOPRAM 10 MG TAB PO (08:23)
[2018-12-02] MEDS: NICOTINE (21 MG/24 HR) PATCH TRANSDERM (08:23)
[2018-12-02 08:34] LABS: MAGNESIUM 1.2 mg/dl (1.7-2.5)
[2018-12-02 08:34] LABS: PHOSPHORUS 3.6 mg/dl (2.5-4.9)
[2018-12-02] MEDS: MAGNESIUM SULFATE 4 GM/100 ML 100 ML IVPB (12:17)
[2018-12-03] MEDS: SOD CHLORIDE 0.9% 1,000 ML IV ×4 (02:11→21:02)
[2018-12-03] MEDS: HYDROCODONE/APAP (5/325) TAB PO ×4 (05:17→22:58)
[2018-12-03] MEDS: PANTOPRAZOLE (EC) 40 MG TAB PO (05:17)
[2018-12-03] MEDS: ESCITALOPRAM 10 MG TAB PO (09:13)
[2018-12-03] MEDS: NICOTINE (21 MG/24 HR) PATCH TRANSDERM (09:14)
[2018-12-03] MEDS: ACETAMINOPHEN 325 MG TAB PO (21:42)
[2018-12-03] MEDS: NITROGLYCERIN (SL) 0.4 MG TAB SL (22:48)
[2018-12-04] MEDS: SOD CHLORIDE 0.9% 1,000 ML IV ×3 (04:22→16:46)
[2018-12-04] MEDS: HYDROCODONE/APAP (5/325) TAB PO ×6 (04:28→23:14)
[2018-12-04] MEDS: PANTOPRAZOLE (EC) 40 MG TAB PO (06:01)
[2018-12-04] MEDS: ESCITALOPRAM 10 MG TAB PO (08:44)
[2018-12-04] MEDS: NICOTINE (21 MG/24 HR) PATCH TRANSDERM (08:44)
[2018-12-04] MEDS: ACETAMINOPHEN 325 MG TAB PO (15:26)
[2018-12-05] MEDS: SOD CHLORIDE 0.9% 1,000 ML IV (05:36)
[2018-12-05] MEDS: HYDROCODONE/APAP (5/325) TAB PO ×3 (05:36→21:41)
[2018-12-05] MEDS: PANTOPRAZOLE (EC) 40 MG TAB PO (05:36)
[2018-12-05] MEDS: ESCITALOPRAM 10 MG TAB PO (09:37)
[2018-12-05] MEDS: NICOTINE (21 MG/24 HR) PATCH TRANSDERM (09:37)
== END 2018-12-05 21:50 | DRG 897 ==
LOC: TEL 11-16 12:10 → 2NE 11-18 20:25 → E/R 11-15 05:00 → TEL 11-17 19:50 → 2NE 11-18 20:25 → E/R 10:44 → TEL 11-16 12:10 → 2NE 11-17 19:50
DX: F10.239 Alcohol dependence with withdrawal, unspecified (principal); S22.31XA Fracture of one rib, right side, initial encounter for closed fracture; R44.3 Hallucinations, unspecified; D69.6 Thrombocytopenia, unspecified; D75.89 Other specified diseases of blood and blood-forming organs; F32.9 Major depressive disorder, single episode, unspecified; N28.9 Disorder of kidney and ureter, unspecified; E86.0 Dehydration; R53.1 Weakness; D64.9 Anemia, unspecified; R25.1 Tremor, unspecified
CPT/HCPCS: 36415; 70450; 71045; 73560; 73562; 76705; 80048; 80053; 80307; 81001; 82607; 82746; 82962; 83036; 83735; 84100; 84443; 85025; 85610; 85730; 87040-91; 87086; 93005; 93970; 96361; 96365; 96375; 96376; 97110; 97116; 97162; 97530; 99291-25